=== PATIENT | female | born 1990 | race Caucasian/White ===

== ENCOUNTER 2024-05-17 18:26 | Emergency (ER) | payer OTHER, SELFPAY ==
[2024-05-17 18:29] VITALS: BP 105/73
[2024-05-17 18:53] LABS: COVID-19 Antigen Negative (Negative)
--- NOTE | 2024-05-17 20:39 | ED.GENMED ---
History of Present Illness
General
Chief Complaint: Cold/Flu/URI Symptoms
Source: patient, family and other (Patient speaks primarily Trinidadian so her family member, who is at the bedside, translates for her.)
Exam Limitations: none
Time Seen by Provider: 05/17/24 20:36
Nursing documentation reviewed up to this point in time: agreed with
History of Present Illness
History of Present Illness:
The patient is a 33-year-old female who comes in with complaints of 3 to 4 days of cough and congestion. Patient denies fever. She denies shortness of breath. She denies sick contacts. She denies leg pain and leg swelling. The patient denies a
sore throat. She reports she has an itchy rash under her left armpit that has been there for several days. There is no rash anywhere else.
Past History
Past History
ED Past Medical History: None
ED Past Surgical History: None
Social History
Tobacco: Non-smoker
Alcohol: None
Drug: None
Personal: Other
Living: with family
Employment: Other
Family History
Family History: Other
Review of Systems
Review of Systems
Allergies reviewed?: Yes
Other source history: family
All Other Systems: ROS reviewed and negative except as documented in HPI and ROS
Constitutional: Reports no symptoms
EENT: Reports no symptoms
Respiratory: Reports cough
Cardiac: Reports no symptoms
ABD/GI: Reports no symptoms
: Reports no symptoms
Musculoskeletal: Reports no symptoms
Skin: Reports itching and rash
Neurological: Reports no symptoms
Endocrine: Reports no symptoms
Hematologic/Lymphatic: Reports no symptoms
Psychiatric: Reports no symptoms
Phy Exam
Physical Exam
Physical Exam:
Physical Exam
General: no apparent distress, not acutely ill. Coughing but conversational in no acute distress
Neck: supple. no meningeal signs. No cervical lymphadenopathy
Heart: s1/s2 regular rate and rhythm, no murmur. equal radial pulses.
Lungs: no acute respiratory distress. clear bilaterally
Abdomen: normal bowel sounds. not tender. no CVAT
Neuro: alert and oriented. no focal neurological deficits
Skin: Mild erythematous and excoriated rash under left axilla without any sign of fluctuance or abscess
Psychiatric: well kept. interactive and cooperative
Extremities: no edema. no calf tenderness. negative homans. good distal pulses
Course
Orders/Labs/Results
Orders:
Orders
05/17/24 18:30
CR Chest - 2 Views Urgent
Comment:
Reason For Exam: cough
05/17/24 18:34
COVID-19 Antigen Urgent
Source: Nasal Swab
Influenza A+B Rapid Molecular Urgent
MONISHA Source: Nasal Swab
Specimen Description:
05/17/24 21:02
Diphenhydramine [Benadryl] 25 mg PO NOW STA
05/17/24 21:10
Doxycycline [Vibramycin] 50 mg PO NOW STA
Vital Signs
Initial and Last Documented VS:
Initial Vital Signs
Temp Pulse Resp BP Pulse Ox
98.3 F 90 18 105/73 97
05/17/24 18:29 05/17/24 18:29 05/17/24 18:29 05/17/24 18:29 05/17/24 18:29
Last Documented Vital Signs
Temp Pulse Resp BP Pulse Ox
98.3 F 90 20 105/73 97
05/17/24 18:29 05/17/24 18:29 05/17/24 20:42 05/17/24 18:29 05/17/24 18:29
MDM/Problems Addressed
Differential Diagnosis Includes:
Viral illness, bacterial pneumonia
MDM/Problems Addressed:
Patient presents with acute cough
*Radiology
Radiology exam reviewed: preliminary read by ED provider (Left lower lobe infiltrate. Chest x-ray read by me) and radiology read reviewed
*Pulse Oximetry
Patient hypoxic: no
*EKG
Interpreted by ED Provider?: NA
*Retirement Administrator Interpretation
Rate: Retirement Administrator- N/A
*Critical Care Note
Total Time (30-74mins, 75-104mins- exclusive of procedures): Not Applicable
Data Reviewed
Source: patient and family
ED Attending Note
-
Portions of this chart may have been created with voice recognition software.� Occasional wrong word or��sound alike� substitutions may have occurred due to the inherent limitations of voice recognition software.
Discharge Plan
Departure
Patient Disposition: Home (Routine Discharge)
Date of Disposition: 05/17/24
Time of Disposition: 21:02
Patient with high blood pressure during this ER visit?: No
Condition: Good
Covid-19: Negative COVID-19
Discharge Problem:
Pneumonia, Rash, skin
Instructions: Community-acquired pneumonia in adults
Prescriptions:
New
doxycycline hyclate 100 mg capsule
100 mg PO BID Qty: 13 0RF
No Action
pantoprazole [Protonix] 40 mg tablet,delayed release (DR/EC)
40 mg PO DAILY Qty: 30 0RF
ferrous sulfate [Iron (ferrous sulfate)] 325 mg (65 mg iron) tablet
325 mg PO DAILY Qty: 30 0RF
Referrals:
Lexi Freedman MD [Family Provider] - (Please follow-up within 1 week)
Activity Restrictions/Additional Instructions:
Take 25 mg of Benadryl every 8 hours as needed for itching.
Interventions
Interventions:
*Risk Screen - Suicide Last Done: 05/17/24 21:32
*General Assessment Last Done: 05/17/24 18:29
*Neglect/Abuse Screening Last Done: 05/17/24 21:32
ED- Fall Risk Assessment Last Done: 05/17/24 21:32
*ED COVID-19 Vaccine History Last Done: 05/17/24 21:32
*Nursing Disposition Last Done: 05/17/24 21:32
ED- Pulmonary Assessment Last Done: 05/17/24 20:42
Discharge Date and Time
Discharge Date/Time: 05/17/24 21:33
Print Language: Trinidadian
[2024-05-17] MEDS: BENADRYL 25 MG PO (21:25)
[2024-05-17] MEDS: VIBRAMYCIN 50 MG PO (21:25)
== END 2024-05-17 21:33 | disposition home or self-care (01) ==
LOC: EMR 18:26
PROVIDERS: Physician Assistant; EMERGENCY PHYSICIAN Emergency Medicine; FAMILY PHYSICIAN Family Medicine
DX: J18.9 Pneumonia, unspecified organism (principal); R21 Rash and other nonspecific skin eruption; Z11.52 Encounter for screening for COVID-19
CPT/HCPCS: 99284; 71046; 87502; 87811

== ENCOUNTER 2025-03-22 20:18 | Emergency (ER) | payer OTHER, SELFPAY ==
[2025-03-22 20:24] VITALS: BP 106/71
[2025-03-22 20:32] VITALS: BP 101/59
[2025-03-22 20:33] VITALS: BMI 34.3
[2025-03-22 21:00] LABS: Hematocrit 32.7 % (37.0-47.0); Hemoglobin 11.4 g/dL (12.0-16.0); Mean Corp Hgb Conc. 34.9 g/dL (33.0-37.0); Mean Corpuscular Volume 87.4 fL (81.0-99.0); Nucleated Red Blood Cells % 0 %; Platelet Count 299 10^3/uL (130-400); Red Cell Dist. Width 11.9 % (11.5-14.5)
--- NOTE | 2025-03-22 21:11 | ED.GENMED ---
History of Present Illness
<Jose Maciel MD, Resident - Last Filed: 03/23/25 00:14>
General
Chief Complaint: Chest Pain
Source: patient
Time Seen by Provider: 03/22/25 20:29
History of Present Illness
History of Present Illness:
Patient with PMH of SHABNAM presents to the [facility] ED with intermittent chest pain. Patient has had intermittent episodes of this chest pain for a couple months, with this most recent episode lasting 2-3 days. The chest pain is centrally located,
worse with laying down and sleeping, 7�8/10 intensity at its worst, improves with deep breathing, and radiates to the left arm. Associated with shortness of breath and palpitations. Patient does get reflux, but she says this feels different.
Patient states this episode feels like a panic attack or nervousness. Patient had nausea and diarrhea last week. Patient endorses mild right knee pain, without swelling or redness. Patient was going to see her PCP for this problem, but it was
taking too long to get that appointment. No history of blood clots. No oral contraceptives.
Past History
<Jose Maciel MD, Resident - Last Filed: 03/23/25 00:14>
Past History
ED Past Medical History: Other (Anemia)
ED Past Surgical History: None
Social History
Tobacco: Non-smoker
Alcohol: None
Drug: None
Personal: Other
Living: with family
Employment: Other
Family History
Family History: Other
Review of Systems
<Jose Maciel MD, Resident - Last Filed: 03/23/25 00:14>
Review of Systems
Constitutional: Reports fatigue; Denies fever or chills
Respiratory: Reports trouble breathing
Cardiac: Reports chest pain and palpitations
ABD/GI: Reports nausea and diarrhea; Denies abdominal pain or vomiting
: Reports no symptoms
Phy Exam
<Jose Maciel MD, Resident - Last Filed: 03/23/25 00:14>
Physical Exam
Physical Exam:
General: NAD. Lying in bed comfortably.
CV: RRR. S1, S2 noted. No M/R/G. No LE edema. R knee without erythema, edema, or warmth.
Pulm: CTAB. No wheezes or crackles. No cyanosis
GI: Soft, nontender. Nondistended.
Neuro: A&O x 3. NFD. CN II through XII grossly intact.
Scores
<Jose Maciel MD, Resident - Last Filed: 03/23/25 00:14>
Heart Score for Chest Pain Patients
STEMI patient?: No
History: Slightly or Non-Suspicious
ECG: Normal
Age: </= 45 years
Risk Factors: No Risk Factors
Troponin: </= Normal Limit
Heart Score for Chest Pain Patients: 0
Heart Score Risk: 2.5% MACE over next 6 weeks
Course
<Jose Maciel MD, Resident - Last Filed: 03/23/25 00:14>
Orders/Labs/Results
Orders:
Orders
03/22/25 20:19
EKG [Electrocardiogram (*1)] Urgent
Reason for Study: Tachycardia
EKG- Treatment ONCE
03/22/25 20:30
Cardiac Monitoring- Treatment ONCE
IV Insert/Care/Rem.- Treatment PRN
O2 Therapy [RESP] Urgent
Titrate/Wean O2 to maintain O2 sat greater than (%): 90
Special Instructions: Maintain sats >/=90%
Pulse Ox/spot Check [RESP] Urgent
Quantity: 1
Special Instructions: ON ROOM AIR
03/22/25 20:54
Complete Blood Count/With Diff Urgent
Comprehensive Metabolic Panel Urgent
Troponin I Urgent
03/22/25 21:12
Test Result ONCE
03/22/25 21:20
D-Dimer Urgent
HCG, Serum Qualitative Screen Urgent
03/22/25 21:26
CT Chest PE Study Urgent
Comment:
Reason For Exam: chest pain, SOB
Abnormal Lab Results
03/22/25
20:54
RBC 3.74 L 10^6/uL
(4.20-5.40)
Hgb 11.4 L g/dL
(12.0-16.0)
Hct 32.7 L %
(37.0-47.0)
Absolute Lymphs (auto) 3.6 H 10^3/uL
(1.2-3.4)
Absolute Monos (auto) 0.7 H 10^3/uL
(0.1-0.6)
03/22/25 20:54
03/22/25 20:54
Vital Signs
Initial and Last Documented VS:
Initial Vital Signs
Temp Pulse Resp BP Pulse Ox
98.0 F 83 20 106/71 99
03/22/25 20:24 03/22/25 20:24 03/22/25 20:24 03/22/25 20:24 03/22/25 20:24
Last Documented Vital Signs
Temp Pulse Resp BP Pulse Ox
98.0 F 83 19 104/60 99
03/22/25 20:24 03/22/25 23:00 03/22/25 23:00 03/22/25 23:00 03/22/25 23:00
<Harpal Mendez MD - Last Filed: 03/22/25 22:54>
Orders/Labs/Results
Orders:
Orders
03/22/25 20:19
EKG [Electrocardiogram (*1)] Urgent
Reason for Study: Tachycardia
EKG- Treatment ONCE
03/22/25 20:30
Cardiac Monitoring- Treatment ONCE
IV Insert/Care/Rem.- Treatment PRN
O2 Therapy [RESP] Urgent
Titrate/Wean O2 to maintain O2 sat greater than (%): 90
Special Instructions: Maintain sats >/=90%
Pulse Ox/spot Check [RESP] Urgent
Quantity: 1
Special Instructions: ON ROOM AIR
03/22/25 20:54
Complete Blood Count/With Diff Urgent
Comprehensive Metabolic Panel Urgent
Troponin I Urgent
03/22/25 21:12
Test Result ONCE
03/22/25 21:20
D-Dimer Urgent
HCG, Serum Qualitative Screen Urgent
03/22/25 21:26
CT Chest PE Study Urgent
Comment:
Reason For Exam: chest pain, SOB
Abnormal Lab Results
03/22/25
20:54
RBC 3.74 L 10^6/uL
(4.20-5.40)
Hgb 11.4 L g/dL
(12.0-16.0)
Hct 32.7 L %
(37.0-47.0)
Absolute Lymphs (auto) 3.6 H 10^3/uL
(1.2-3.4)
Absolute Monos (auto) 0.7 H 10^3/uL
(0.1-0.6)
03/22/25 20:54
03/22/25 20:54
Vital Signs
Initial and Last Documented VS:
Initial Vital Signs
Temp Pulse Resp BP Pulse Ox
98.0 F 83 20 106/71 99
03/22/25 20:24 03/22/25 20:24 03/22/25 20:24 03/22/25 20:24 03/22/25 20:24
Last Documented Vital Signs
Temp Pulse Resp BP Pulse Ox
98.0 F 83 19 104/60 99
03/22/25 20:24 03/22/25 23:00 03/22/25 23:00 03/22/25 23:00 03/22/25 23:00
<Jose Maciel MD, Resident - Last Filed: 03/23/25 00:14>
MDM/Problems Addressed
Differential Diagnosis Includes:
Pulmonary embolism
Pneumonia
Pneumothorax
Myocardial infarction
Anemia
Anxiety
Panic attack
MDM/Problems Addressed:
Assessment: Patient is a 34-year-old female with PMH of SHABNAM who presents to the [facility] ED with approximately 2 months of intermittent episodes of chest pain that is centrally located, worse with lying down and sleeping, fluctuating in intensity,
radiating to the left arm, and associated with shortness of breath, palpitations, and dizziness. Patient had a recent 19-hour plane ride from [facility] in January. AFVSS. Physical exam unremarkable. EKG, CMP unremarkable. Troponin <0.012.
No leukocytosis. No PE on CT PE study. Hgb 11.4, which is actually above the patient's prior baseline.
Plan:
#Chest pain
EKG
Labs: CBC, CMP, troponin, hCG
Imaging: CT PE study
<Jose Maciel MD, Resident - Last Filed: 03/23/25 00:14>
*Pulse Oximetry
SaO2: 100
Oxygen Mode of Delivery: Room air
Patient hypoxic: no
*Critical Care Note
Total Time (30-74mins, 75-104mins- exclusive of procedures): Not Applicable
ED Attending Note
<Jose Maciel MD, Resident - Last Filed: 03/23/25 00:14>
-
Portions of this chart may have been created with voice recognition software.� Occasional wrong word or��sound alike� substitutions may have occurred due to the inherent limitations of voice recognition software.
<Harpal Mendez MD - Last Filed: 03/22/25 22:54>
ED Attending Note
Patient seen and examined by attending physician: Yes
I performed a history and physical exam of patient and discussed management with resident, I reviewed resident's note and agree with documented findings and plan of care.: Yes
ED Attending Note:
I have seen and evaluated the patient with a [id number] encounter. I have spoken to the resident and involved in the medical history, the physical exam, medical decision making.
Evaluation and management service: agree unless noted differently below.
Results interpretation: agree unless noted differently below.
Focused HPI: 34-year-old female with history of anemia presents to the ER for evaluation of chest pain and shortness of breath. Patient reports symptoms started last week and have been constant since that time. She reports shortness of breath that
seems to get better when she takes a few deep breaths. She reports some mild chest discomfort substernal that radiates towards the ribs. She has not had any significant cough. Denies fever or chills. Denies any abdominal pain, nausea, vomiting.
She says she will occasionally have some pain in the right kneecap but no calf pain or swelling. She had a similar episode in February. She did have a recent 19-hour flight from [facility] in late January. Denies any history of DVT/PE or any
cardiac history.
Physical exam: Awake and alert not in distress. Vital signs within normal limits. She has no cardiac rubs gallops or murmurs. Lungs sound clear to auscultation bilaterally. She has no edema in the legs, no calf tenderness. Abdomen nontender.
Medical Decision Makin-year-old female presents for evaluation of chest pain and shortness of breath as described above. Vitals and exam as above. EKG shows sinus rhythm no acute ischemia. Plan to place an IV check labs including CBC and a
CMP. Will check troponin. Will check CT chest to rule out PE given her recent long plane ride although low clinical suspicion for PE. Reassess after the above.
Initial labs reviewed: CBC shows marginal anemia unlikely of acute clinical significance. CMP unremarkable. Troponin undetectable x 1 normal symptoms for a week this is sufficient to rule out [place]. Awaiting chest imaging.
CT chest shows no PE or other acute abnormalities to account for symptoms. She does have incidental pulmonary nodule and was notified of need for follow-up. Low suspicion for emergent pathology at this point. She has been clinically stable
throughout your ER visit. Stable for discharge can continue follow-up with her primary doctor. She posit that symptoms may be from anxiety and this is certainly a possibility but I advised her she should follow-up with her primary care doctor.
Spoke about return precautions and all questions answered.
Discharge Plan
Departure
Patient Disposition: Home (Routine Discharge)
Date of Disposition: 03/22/25
Time of Disposition: 22:53
Patient with high blood pressure during this ER visit?: No
Discharge Problem:
Shortness of breath, Incidental pulmonary nodule
Instructions: Shortness of breath in adults - ED (DC)
Prescriptions:
No Action
pantoprazole [Protonix] 40 mg tablet,delayed release (DR/EC)
40 mg PO DAILY Qty: 30 0RF
ferrous sulfate [Iron (ferrous sulfate)] 325 mg (65 mg iron) tablet
325 mg PO DAILY Qty: 30 0RF
doxycycline hyclate 100 mg capsule
100 mg PO BID Qty: 13 0RF
Referrals:
Lexi Freedman MD [Family Provider, Family Practice] - Follow up in 5-7 days
Activity Restrictions/Additional Instructions:
You should follow-up with your primary doctor as we discussed in the emergency room. You did have an incidental nodule on your lung that we will need to be followed up long-term. If your symptoms are worsening please return to be reassessed.
Thank you for visiting the Emergency Department at [facility].
1. Please schedule a follow up appointment as directed. Call first thing tomorrow morning to make an appointment.
2. If indicated, please take your medications as instructed and indicated on discharge paperwork.
3. If any of your symptoms do not improve, or persist, or become more severe within 6-12 hours, please return to the emergency department for further care.
4. Please return to the emergency department if you develop a headache, neck pain/stiffness, fever greater than 100.4F, chest pain, shortness of breath, persistent nausea, vomiting, slurred speech, difficulty walking, numbness/tingling, weakness,
signs of infection or any other symptoms that are worrisome to you.
Please call [phone] if you have any questions.
Interventions
Interventions:
*Risk Screen - Suicide Last Done: 03/22/25 20:31
*General Assessment Last Done: 03/22/25 20:24
*Neglect/Abuse Screening Last Done: 03/22/25 20:31
*ED- Fall Risk Assessment Last Done: 03/22/25 20:31
*ED COVID-19 Vaccine History Last Done: 03/22/25 20:31
*ED Influenza Vaccine History Last Done: 03/22/25 20:31
*Nursing Disposition Last Done: 03/22/25 23:02
ED- Cardiac Assessment Last Done: 03/22/25 21:04
Discharge Date and Time
Discharge Date/Time: 03/22/25 23:19
Print Language: Bahraini
[2025-03-22 21:22] LABS: ALT (SGPT) 25 U/L (0-35); AST (SGOT) 22 U/L (14-36); Albumin 4.1 g/dl (3.5-5.0); Alkaline Phosphatase 90 U/L (38-126); Blood Urea Nitrogen 9 mg/dl (7-17); Calcium 9.5 mg/dl (8.4-10.2); Carbon Dioxide 28 mmol/L (22-30); Chloride 104 mmol/L (98-107); Estimated Creatinine Clearance > 125 ml/min; Glucose 88 mg/dl (70-99); Potassium 3.8 mmol/L (3.5-5.1); Sodium 135 mmol/L (135-145); Total Protein 7.0 g/dl (6.3-8.2); eGFR > 60.00
[2025-03-22 21:33] LABS: Troponin I < 0.012 ng/ml
[2025-03-22 21:39] LABS: HCG, Serum Qualitative Screen Negative
[2025-03-22 21:44] LABS: D-Dimer 0.32 ug/mlFEU (0.00-0.50)
[2025-03-22 22:00] VITALS: BP 105/78
[2025-03-22 23:00] VITALS: BP 104/60
== END 2025-03-22 23:19 | disposition home or self-care (01) ==
LOC: EMR 20:18
PROVIDERS: EMERGENCY PHYSICIAN Emergency Medicine; FAMILY PHYSICIAN Family Medicine
DX: R06.02 Shortness of breath (principal); R91.1 Solitary pulmonary nodule; D50.9 Iron deficiency anemia, unspecified; K21.9 Gastro-esophageal reflux disease without esophagitis
CPT/HCPCS: 99284; 71275; 80053; 84484; 84703; 85025; 85379; 93005; Q9967